=== PATIENT | female | born 1955 | race Caucasian/White ===

== ENCOUNTER → 2023-06-23 12:40 | Outpatient (REF) | payer MEDICARE, OTHER, SELFPAY | LOC: WDC 12:40 | PROVIDERS: ATTENDING PHYSICIAN Internal Medicine | DX: Z12.31 Encounter for screening mammogram for malignant neoplasm of breast (principal) | CPT/HCPCS: 77063; 77067 ==

== ENCOUNTER → 2024-06-03 08:30 | Outpatient (REF) | payer MEDICARE, OTHER, SELFPAY | LOC: CLAB 08:30 | PROVIDERS: ATTENDING PHYSICIAN Student in an Organized Health Care Education/Training Program | DX: G57.61 Lesion of plantar nerve, right lower limb (principal) | CPT/HCPCS: 88304 ==

== ENCOUNTER → 2024-07-14 14:54 | Outpatient (REF) | payer MEDICARE, OTHER, SELFPAY | LOC: WDC 14:54 | PROVIDERS: ATTENDING PHYSICIAN Internal Medicine | DX: Z12.31 Encounter for screening mammogram for malignant neoplasm of breast (principal); Z78.0 Asymptomatic menopausal state | CPT/HCPCS: 77063; 77067 ==